=== PATIENT | female | born 1995 | race Two or more races ===

== ENCOUNTER 2018-05-04 16:03 | Emergency (ER) | payer MEDICAID ==
[~2018-05-04] VITALS: Ht 157.5 cm; Wt 55.0 kg
[2018-05-04] MEDS ORDERED: IBUPROFEN 600MG TABLET PO ONE (17:15)
[2018-05-04] MEDS ORDERED: METHOCARBAMOL 500MG TABLET PO ONE (17:15)
[2018-05-04 19:42] VITALS: BP 99/66
== END 2018-05-04 19:47 | disposition home or self-care (01) ==
LOC: ER 16:03
DX: S16.1XXA Strain of muscle, fascia and tendon at neck level, initial encounter (principal); S66.812A Strain of other specified muscles, fascia and tendons at wrist and hand level, left hand, initial encounter; V49.49XA Driver injured in collision with other motor vehicles in traffic accident, initial encounter; Y93.89 Activity, other specified; Y92.89 Other specified places as the place of occurrence of the external cause; Y99.8 Other external cause status
CPT/HCPCS: 73060; 73090; 73130; 81025; 99284

== ENCOUNTER 2020-12-04 16:52 | Emergency (ER) | payer MEDICAID, OTHER ==
[~2020-12-04] VITALS: Ht 152.4 cm; Wt 59.0 kg
[2020-12-04 17:07] VITALS: BP 152/94
== END 2020-12-04 20:04 | disposition left against medical advice (07) ==
LOC: ER 16:52
DX: Z53.21 Procedure and treatment not carried out due to patient leaving prior to being seen by health care provider (principal)